=== PATIENT | male | born 1980 | race Caucasian/White ===

== ENCOUNTER 2017-10-16 09:11 | Emergency (ER) | payer SELFPAY ==
[2017-10-16 09:25] VITALS: BP 126/91
--- NOTE | 2017-10-16 09:42 | ERNOTE ---
Psychological HPI - Date Date of Service: 10/16/17 - General Chief Complaint: Suicide Attempt Source: Reports: patient Exam Limitations: Reports: no limitations - Immun/Allergies/Home Medications Allergies/Adverse Reactions: Allergies No Known Allergies Allergy (Verified 10/16/17 09:25) Home Medications: HOME MEDICATIONS Acetaminophen [Tylenol] 1,000 mg PO Q4H PRN 06/25/16 [Last Taken 06/25/16 05:30] Amitriptyline HCl [Elavil] 30 mg PO DAILY 06/25/16 [Last Taken Unknown] Cyclobenzaprine HCl [Flexeril] 10 mg PO TID PRN #30 tablet 06/25/16 [Last Taken Unknown] Meloxicam [Mobic] 15 mg PO DAILY 06/25/16 [Last Taken Unknown] - History of Present Illness Narrative: Patient presents to the ED with police. He tells me he overdosed on his lorazepam and cyclobenzaprine Friday. No problems for that. He tells me he was upset with his today. Police were called and he was brought to the ED. Now denies SI or HI, states he is just mad now. He relates Hx PTSD and TBI but is not sure what other diagnoses he may have. Has not been taking his medications. States he has chronic abdominal pain, no acute pain. States he has a chronic smokers cough but no acute illness. NO fever, acute SOB, CP or acute abdominal pain. Police brought him here after his called the police. he denies any SI or HI. Time Seen by Provider: 10/16/17 09:32 Arrived by: Reports: police Situational Problems: Reports: spouse Associated Symptoms: Reports: made attempt. Denies: hallucinating Prior Treament: Denies: recently seen Review of Systems - Review of Systems Constitutional: Absent: fever EYE: Absent: vision changes ENT: Absent: sore throat Respiratory: Present: See HPI Cardiology: Present: See HPI Gastrointestinal/Abdominal: Present: See HPI Genitourinary: Absent: dysuria Musculoskeletal: Present: no symptoms reported Skin: Present: no symptoms reported Neurological: Absent: weakness Psych: Present: See HPI All Other Systems: All systems neg except as marked - Patient's Past Medical History Patient History - Medical: Anxiety, Other Patient History - Cardiac/Respiratory: No pertinent hx Patient History - Cancer: No Hx of Cancer Patient History - Surgical Procedures: Other Patient History - Other: None - Social History Living Situations: home Abuse History: Hx of Substance Use Psych History: Hx of Anxiety, Hx of Depression Smoking Status: Current every day smoker Alcohol Use: sober Drug Use: marijuana - Immunizations Immunizations Up to Date: Yes Hx Pneumococcal Vaccination: No History of Influenza Vaccine: No Psychological Exam - Exam General Appearance: Present: alert, no apparent distress Head Exam: Present: normal inspection, no evidence of injury Neurological: Present: alert. Absent: agitated, anxious Thoughts/Hallucinations: Present: normal thought pattern Behavior/Eye Contact/Speech: Present: cooperative, normal speech. Absent: threatening eye contact, increased rate of speech, uncooperative Eye Exam: Normal inspection: bilateral, PERRL: bilateral Ears, Nose, Throat: Present: normal ENT inspection Neck: Present: normal inspection Respiratory: Present: no respiratory distress, normal breath sounds, no accessory muscle use, lungs clear Cardiovascular/Chest: Present: regular rate, rhythm Gastrointestinal/Abdominal: Present: normal bowel sounds, nontender, nondistended, soft Rectal Exam: Present: nontender Back Exam: Present: normal range of motion Extremity Exam: Present: normal range of motion Skin Exam: Present: normal color, warm/dry ED Progress - Results and Orders Patient's Lab Results:: I have reviewed the patient's lab results. - Vital Signs Patient's Vital Signs:: I have reviewed the patient's vital signs. Vital Signs: Vital Signs 10/16/17 09:16 Temperature 36.8 C Pulse Rate 98 Respiratory 16 Rate Blood Pressure 126/91 O2 Sat by Pulse 99 Oximetry - Progress/Reassessment Chief Complaint: Suicide Attempt Progress Note-Subjective: 10/16/17 12:25 Patient denied any suicidal or homicidal ideation. By protocol psychiatry here was consulted. Psychiatry here saw the patient in the ED and placed a note on the chart. Psychiatry recommends discharge to home with outpatient follow-up. Please see psychiatry note. Cindy denies any SI or HI and contracts for safety with me also. He agrees to return if he develops any suicidal or homicidal ideation. Patient medically stable. Deemed psychiatrically stable for discharge per psychiatry evaluation here. I discussed warning signs and reasons to return as well as the need for close f/u. Time Seen by Provider: 10/16/17 09:32 Departure Clinical Impression: Psychiatric complaint - Departure Disposition: Home self-care Condition: Stable Additional Instructions: Follow-up with your doctor and with psychiatry as soon as possible. Return here for any thoughts of harming yourself or others or if your condition worsens or changes in any way. Referrals: Ervin Murillo MD [Primary Care Provider] -
[2017-10-16 09:56] LABS: Hematocrit 50.7 % (42.0-52.0); Hemoglobin 17.5 gm/dL (13.5-18.0); Mean Cell Volume 85.4 fl (78-100); Mean Corpuscular Hemoglobin 29.5 pg (27-31); Mean Corpuscular Hgb Conc 34.5 g/dl (32-36); Mean Platelet Volume 10.5 fl (6.0-9.5); Neutrophil # 4.5 K/mm3 (1.3-6.0); Neutrophil % 64.8 % (42-75.0); Platelet Count 238 K/mm3 (150-450); Red Blood Count 5.94 M/mm3 (4.7-6.0); Red Cell Distribution Width 13.3 % (11.5-14.0); White Blood Count 6.9 K/mm3 (4.0-10.5)
[2017-10-16 10:25] LABS: ALT 27 U/L (19-67); AST 22 U/L (0-48); Albumin * 4.1 gm/dl (3.4-5.0); Alkaline Phosphatase * 95 U/L (50-170); BUN/Creatinine Ratio 10.4 (9.0-21.6); Bilirubin, Total 0.6 mg/dL (0.0-1.1); Blood Urea Nitrogen 13 mg/dL (6-23); Ca. Corrected For Albumin 8.7 mg/dL (8.4-10.2); Calcium * 9.1 mg/dL (7.9-10.9); Chloride 101 mmol/L (97-106); Glucose * 95 mg/dL (70-110); Potassium 3.4 mmol/L (3.4-4.6); Salicylate 4.1 mg/dL (2.8-20.0); Sodium 139 mmol/L (132-142); TSH * 2.878 uIU/mL (0.358-3.74)
[2017-10-16 10:32] LABS: Anion Gap 12.9 mmol/L (6.8-13.8); Carbon Dioxide 28.5 mmol/L (24-32.6)
[2017-10-16 10:44] LABS: Cocaine Ur Negative (NEGATIVE); Urine Barbiturate Negative (NEGATIVE); Urine Benzodiazepines Negative (NEGATIVE); Urine Opiates Negative (NEGATIVE); Urine PCP Negative (NEGATIVE); Urine THC Negative (NEGATIVE)
== END 2017-10-16 13:03 | disposition home or self-care (01) ==
LOC: ER 09:11
DX: F99 Mental disorder, not otherwise specified; F17.200 Nicotine dependence, unspecified, uncomplicated
CPT/HCPCS: 36415; 80053; 80307; 84443; 85025; 99284; G0480; G0481